=== PATIENT | male | born 1960 | race Caucasian/White ===

== ENCOUNTER 2022-03-29 10:09 | Inpatient (IN) | payer BC ==
[~2022-03-29] VITALS: Ht 180.3 cm; Wt 249.2 kg
[2022-03-29] VITALS (16 sets, daily range): BP systolic 128–177; BP diastolic 61–101
[~2022-03-29 10:09] MED LIST: DICL75TA3 PO; HYDR12.56 PO; IBUP600T27 PO; LISI20TA28 PO; METF-370 PO; ONDA-143 PO; SIMV-13 PO; TAMS0.4C36 PO; [UNRECOGNIZED DRUG - CODE] PO
[2022-03-29] MEDS ORDERED: ASPirin 325 MG TAB ONE (10:20)
[2022-03-29] MEDS ORDERED: MORPHINE SULFATE 4 MG/ML SYR/VIAL ONE (10:23)
[2022-03-29] MEDS ORDERED: LIDOCAINE 2%HCL (LOCAL ANESTH.) INJ 20ML MDV ONE (10:33)
[2022-03-29] MEDS ORDERED: IODIXANOL 320MG/ML 100ML BTL IV ONE (10:33)
[2022-03-29] MEDS ORDERED: VERAPAMIL 2.5MG/ML INJ 2ML VIAL IV ONE (10:34)
[2022-03-29] MEDS ORDERED: ANGIOMAX 250 MG VIAL IV ONE (10:34)
[2022-03-29] MEDS ORDERED: HEPARIN SODIUM (PORCINE) 5000 UNITS/ML 1ML VIAL ONE (10:34)
[2022-03-29] MEDS ORDERED: fentaNYL CITRATE 100 MCG/2 ML VL ONE ×2 (10:34→11:21)
[2022-03-29] MEDS ORDERED: SODIUM CHL 0.9% 50 ML ONE (10:35)
[2022-03-29] MEDS ORDERED: MIDAZOLAM HCL 2MG/2ML 2ml VIAL (1mg/ml) ONE ×2 (10:35→11:21)
[2022-03-29] MEDS ORDERED: MORPHINE SULFATE INJ 2 MG/ml SYRG IV ONE (10:45)
[2022-03-29] MEDS ORDERED: ASPirin 81 mg TAB PO ONE (10:45)
[2022-03-29 11:02] LABS: Basophils # (auto) 0.1 10 ^3/uL (0-0.2); Basophils % (auto) 0.9 % (0.0-2.0); Eosinophils # (auto) 0.1 10 ^3/uL (0-0.8); Eosinophils % (auto) 2.4 % (0.0-7.0); Hematocrit 47.4 % (41.0-53.0); Hemoglobin 15.9 g/dL (13.5-17.5); Lymphocytes # (auto) 1.5 10 ^3/uL (0.4-5.4); Lymphocytes % (auto) 24.6 % (10.0-50.0); Mean Corpuscular Hgb Conc. 33.4 g/dL (32.0-36.0); Mean Corpuscular Volume 89.6 fL (80.0-100.0); Monocytes # (auto) 0.6 10 ^3/uL (0-1.3); Monocytes % (auto) 10.2 % (0.0-12.0); Neutrophils # (auto) 3.8 10 ^3/uL (1.6-8.6); Neutrophils % (auto) 61.9 % (37.0-80.0); Nucleated Red Blood Cells % 0.1 %; Red Blood Cells 5.29 10^6/uL (4.5-5.90); Red Cell Distribution Width 13.4 % (11.8-14.3); White Blood Cell 6.2 10^3/uL (4.4-10.8)
[2022-03-29 11:22] LABS: Potassium 3.6 mmol/L (3.5-5.1)
[2022-03-29] MEDS ORDERED: LIDOCAINE HCL 100 MG/5ML (2%) SYRG INJ IV ONE (11:23)
[2022-03-29] MEDS ORDERED: TICAGRELOR 90 MG TAB ONE (11:24)
[2022-03-29 11:29] LABS: Albumin 3.6 g/dL (3.4-5.0); Total Protein 7.6 g/dL (6.4-8.2)
[2022-03-29] MEDS: CARVEDILOL 3.125 MG TAB PO SCH ×2 (11:45→22:08)
[2022-03-29] MEDS ORDERED: NITROGLYCERIN 0.4 MG SL TAB SL PRN (11:45)
[2022-03-29] MEDS ORDERED: MORPHINE SULFATE INJ 2 MG/ml SYRG IV PRN (11:45)
[2022-03-29] MEDS ORDERED: GLIP5TAB12 PO (16:16)
[2022-03-29] MEDS ORDERED: LOSA-69 PO (16:16)
[2022-03-29] MEDS ORDERED: METF-929 PO (16:16)
[2022-03-29 17:50] LABS: Urine WBC None Seen /hpf (0 - 3)
[2022-03-29 18:44] LABS: Urine Bacteria FEW /hpf (None Seen); Urine Blood Negative /uL (Negative); Urine Mucus FEW (None Seen)
[2022-03-29 18:56] LABS: Urine Specific Gravity > 1.050 (1.001-1.035)
[2022-03-29] MEDS: TICAGRELOR 90 MG TAB PO SCH (22:07)
[2022-03-29] MEDS: ATORVASTATIN 20 MG TAB PO SCH (22:09)
[2022-03-30] VITALS (13 sets, daily range): BP systolic 96–169; BP diastolic 36–86
[2022-03-30] MEDS: ASPirin 81 mg TAB PO SCH (10:34)
[2022-03-30] MEDS: TICAGRELOR 90 MG TAB PO SCH ×2 (10:35→22:11)
[2022-03-30] MEDS: CARVEDILOL 3.125 MG TAB PO SCH ×2 (10:35→22:12)
[2022-03-30] MEDS ORDERED: CILO100T PO (11:11)
[2022-03-30] MEDS ORDERED: GLIP-197 PO (11:11)
[2022-03-30] MEDS ORDERED: DEXTROSE (50%) 50ML SYRG IV PRN (12:00)
[2022-03-30] MEDS ORDERED: LISINOPRIL 20 MG TAB PO ONE (12:00)
[2022-03-30] MEDS ORDERED: TAMSULOSIN HYDROCHLORIDE 0.4 MG CAP PO SCH (18:00)
[2022-03-30] MEDS: ACCU-CHEK COMFORT CURVE STRIP VI SCH ×2 (18:17→22:13)
[2022-03-30] MEDS: InsuLIN REG 1unit/0.01ml Soln (100units/ml) SC SCH (18:24)
[2022-03-30] MEDS ORDERED: InsuLIN REG 1unit/0.01ml Soln (100units/ml) SC SCH (22:00)
[2022-03-30] MEDS: HYDROcodone-ACET 5/325MG TAB PO PRN (22:12)
[2022-03-30] MEDS: ATORVASTATIN 20 MG TAB PO SCH (22:15)
[2022-03-31] VITALS (13 sets, daily range): BP systolic 99–150; BP diastolic 46–86
[2022-03-31] MEDS: HYDROcodone-ACET 5/325MG TAB PO PRN ×2 (04:43→15:11)
[2022-03-31 05:45] LABS: Potassium 3.9 mmol/L (3.5-5.1)
[2022-03-31 05:49] LABS: BUN/Creatinine Ratio 14.9; Calcium 9.3 mg/dL (8.5-10.1)
[2022-03-31] MEDS: ACCU-CHEK COMFORT CURVE STRIP VI SCH ×2 (06:32→13:05)
[2022-03-31] MEDS: InsuLIN REG 1unit/0.01ml Soln (100units/ml) SC SCH ×2 (06:38→13:05)
[2022-03-31] MEDS ORDERED: LISINOPRIL 20 MG TAB PO SCH (10:00)
[2022-03-31] MEDS: ASPirin 81 mg TAB PO SCH (10:28)
[2022-03-31] MEDS: CARVEDILOL 3.125 MG TAB PO SCH (10:29)
[2022-03-31] MEDS: TICAGRELOR 90 MG TAB PO SCH (10:29)
[2022-03-31] MEDS ORDERED: CAR3125T PO (11:13)
[2022-03-31] MEDS ORDERED: TICA90TA PO (11:13)
[2022-03-31] MEDS ORDERED: ASPI-325 PO (11:13)
== END 2022-03-31 17:15 | disposition home or self-care (01) | DRG 247 ==
LOC: ER 10:09 → CATH 1 10:31 → TELE 11:39 → DOU IN ICU 13:10
PROVIDERS: ADMIT Internal Medicine; ATTEND Internal Medicine
PROC: 4A023N7 Measurement of Cardiac Sampling and Pressure, Left Heart, Percutaneous Approach (ICD-10-PCS; principal; 2022-03-29)
PROC: B211YZZ Fluoroscopy of Multiple Coronary Arteries using Other Contrast (ICD-10-PCS; 2022-03-29)
PROC: 027034Z Dilation of Coronary Artery, One Artery with Drug-eluting Intraluminal Device, Percutaneous Approach (ICD-10-PCS; 2022-03-29)
DX: I21.02 ST elevation (STEMI) myocardial infarction involving left anterior descending coronary artery (principal); I11.0 Hypertensive heart disease with heart failure; E78.5 Hyperlipidemia, unspecified; E11.9 Type 2 diabetes mellitus without complications; N40.0 Benign prostatic hyperplasia without lower urinary tract symptoms; E66.9 Obesity, unspecified; Z20.822 Contact with and (suspected) exposure to COVID-19; I50.9 Heart failure, unspecified; I25.119 Atherosclerotic heart disease of native coronary artery with unspecified angina pectoris; Z79.82 Long term (current) use of aspirin; Z87.442 Personal history of urinary calculi; Z68.34 Body mass index [BMI] 34.0-34.9, adult
CPT/HCPCS: 36415; 71045; 74176; 80048; 80053; 81001; 82962; 83036; 83605; 84484; 85025; 87040; 87081; 92928; 93005; 93306; 93458; 96374; 99152; 99153; 99291; C1874; C1887; G0378; J2250; Q9967